=== PATIENT | female | born 1965 | race African-American/Black ===

== ENCOUNTER 2018-11-05 09:12 | Emergency (ER) | payer MEDICAID ==
[~2018-11-05] VITALS: Ht 162.6 cm; Wt 68.0 kg
[~2018-11-05 09:12] MED LIST: ASPI-1079; BENA5TAB6; MONT5TAB13; PRO-AIR INH
[2018-11-05] MEDS ORDERED: ALBUTEROL (0.083%) 2.5MG/3ML NEB HHN STA (16:41)
[2018-11-05] MEDS ORDERED: PREDNISONE 20MG TABLET PO STA (16:41)
[2018-11-05 17:17] LABS: EOSINOPHILS % 0.4 % (0.0-5.0); HEMATOCRIT. 43.4 % (36.0-48.0); HEMOGLOBIN. 14.4 g/dL (12.0-16.0); LYMPHOCYTES % 40.8 % (20.0-50.0); MEAN CORPUSCULAR HEMOGLOBIN 29.2 pg (28.0-32.0); MEAN CORPUSCULAR VOLUME 87.8 fL (81.0-99.0); MEAN PLATELET VOLUME 10.7 fl (7.4-10.4); MONOCYTES % 11.2 % (2.0-8.0); NEUTROPHILS % 46.6 % (40.0-76.0); PLATELET 179 x1000/uL (130-400); RED BLOOD CELL COUNT 4.94 mill/uL (4.2-5.4)
[2018-11-05 17:20] LABS: CHLORIDE 109 mEq/L (98-107)
[2018-11-05 18:37] VITALS: BP 154/94
== END 2018-11-05 18:42 | disposition home or self-care (01) ==
LOC: ER 09:43
DX: J45.901 Unspecified asthma with (acute) exacerbation (principal); R07.89 Other chest pain; I10 Essential (primary) hypertension; Z91.018 Allergy to other foods
CPT/HCPCS: 36415; 71045; 80053; 84484; 85025; 93005; 94640; 99284; J7512; J7611

== ENCOUNTER 2021-07-23 13:14 | Emergency (ER) | payer MEDICAID | END 2021-07-23 14:53 | disposition left against medical advice (07) | LOC: ER 13:14 | DX: R68.89 Other general symptoms and signs (principal); Z53.21 Procedure and treatment not carried out due to patient leaving prior to being seen by health care provider ==

== ENCOUNTER 2021-07-25 13:42 | Emergency (ER) | payer MEDICAID ==
[~2021-07-25] VITALS: Ht 162.6 cm; Wt 70.0 kg
[2021-07-25] MEDS ORDERED: ACETAMINOPHEN 325MG TABLET PO ONE (14:00)
[2021-07-25] MEDS ORDERED: TOPUD MT (14:31)
[2021-07-25 16:52] VITALS: BP 128/78
== END 2021-07-25 16:54 | disposition home or self-care (01) ==
LOC: ER 13:42
DX: S92.911A Unspecified fracture of right toe(s), initial encounter for closed fracture (principal); I10 Essential (primary) hypertension; J45.909 Unspecified asthma, uncomplicated; Z86.59 Personal history of other mental and behavioral disorders; Z91.018 Allergy to other foods; Z98.51 Tubal ligation status; Z98.890 Other specified postprocedural states; W22.8XXA Striking against or struck by other objects, initial encounter; Y93.89 Activity, other specified; Y92.89 Other specified places as the place of occurrence of the external cause; Y99.8 Other external cause status
CPT/HCPCS: 73630; 99283; Z7610

== ENCOUNTER 2021-09-07 06:13 | Emergency (ER) | payer MEDICAID ==
[~2021-09-07] VITALS: Ht 162.6 cm; Wt 71.0 kg
[~2021-09-07 06:13] MED LIST changes: +TOPUD MT
[2021-09-07] MEDS ORDERED: IBUP-2028 PO (08:08)
[2021-09-07 08:41] VITALS: BP 126/74
== END 2021-09-07 08:42 | disposition home or self-care (01) ==
LOC: ER 06:13
DX: S92.911A Unspecified fracture of right toe(s), initial encounter for closed fracture (principal); X58.XXXA Exposure to other specified factors, initial encounter; Y93.89 Activity, other specified; Y92.9 Unspecified place or not applicable; I10 Essential (primary) hypertension; G43.909 Migraine, unspecified, not intractable, without status migrainosus; Z79.82 Long term (current) use of aspirin; Z98.51 Tubal ligation status; Z91.018 Allergy to other foods
CPT/HCPCS: 73630; 99283; Z7610

== ENCOUNTER 2022-02-11 13:09 | Emergency (ER) | payer MEDICAID ==
[~2022-02-11] VITALS: Ht 162.6 cm; Wt 72.0 kg
[~2022-02-11 13:09] MED LIST changes: +BENA5TAB40; -BENA5TAB6; +IBUP-2028 PO
[2022-02-11 15:45] VITALS: BP 172/99
[2022-02-11] MEDS ORDERED: HYDROCODONE/ACETAMINOPHEN 5/325MG TABLET PO ONE (15:45)
[2022-02-11] MEDS ORDERED: IBUP-2029 MT (17:42)
[2022-02-11] MEDS ORDERED: HYDR-4001 MT (17:42)
== END 2022-02-11 17:57 | disposition home or self-care (01) ==
LOC: ER 14:28
DX: R51.9 Headache, unspecified (principal); R42 Dizziness and giddiness; J45.909 Unspecified asthma, uncomplicated; I10 Essential (primary) hypertension; I49.9 Cardiac arrhythmia, unspecified; Z79.899 Other long term (current) drug therapy
CPT/HCPCS: 73502; 73660; 99284

== ENCOUNTER 2022-07-08 22:55 | Emergency (ER) | payer MEDICAID ==
[~2022-07-08] VITALS: Ht 162.6 cm; Wt 71.6 kg
[~2022-07-08 22:55] MED LIST changes: +HYDR-4001 MT; +IBUP-2029 MT
[2022-07-08 23:34] VITALS: BP 152/90
== END 2022-07-09 01:48 | disposition home or self-care (01) ==
LOC: ER 22:55
DX: R00.2 Palpitations (principal); I10 Essential (primary) hypertension; J45.909 Unspecified asthma, uncomplicated; Z98.51 Tubal ligation status; Z79.82 Long term (current) use of aspirin; Z91.018 Allergy to other foods
CPT/HCPCS: 71045; 93005; 99283

== ENCOUNTER 2023-02-08 00:43 | Emergency (ER) | payer MEDICAID ==
[~2023-02-08] VITALS: Ht 160 cm; Wt 68.9 kg
[2023-02-08 01:46] LABS: BASOPHILS % 1.1 % (0.0-2.0); EOSINOPHILS % 0.9 % (0.0-5.0); HEMATOCRIT. 38.7 % (36.0-48.0); HEMOGLOBIN. 13.1 g/dL (12.0-16.0); LYMPHOCYTES % 33.3 % (20.0-50.0); MEAN CORPUSCULAR HEMOGLOBIN 28.9 pg (28.0-32.0); MEAN CORPUSCULAR VOLUME 85.3 fL (81.0-99.0); MEAN PLATELET VOLUME 10.8 fl (7.4-10.4); MONOCYTES % 11.7 % (2.0-8.0); PLATELET 201 x1000/uL (130-400); RED BLOOD CELL COUNT 4.54 mill/uL (4.2-5.4); RED CELL DISTRIBUTION WIDTH 12.9 % (11.6-14.6)
[2023-02-08 01:57] LABS: CHLORIDE 111 mEq/L (98-107)
[2023-02-08 01:58] LABS: INR 0.9; PARTIAL THROMBOPLASTIN TIME 25.6 sec (23.4-31.0); PROTHROMBIN TIME 10.1 sec (9.6-11.0)
[2023-02-08] MEDS ORDERED: MAG-55 MT (02:22)
[2023-02-08] MEDS ORDERED: N325 SL (02:22)
[2023-02-08] MEDS ORDERED: NITROGLYCERIN 0.4MG TABLET SL SL ONE (02:30)
[2023-02-08] MEDS ORDERED: MAGNESIUM/ALUMINUM HYDROXIDE/SIMETHICONE 30ML UDC PO ONE (02:30)
[2023-02-08] MEDS ORDERED: POLY119P2 MT (02:47)
[2023-02-08 02:54] VITALS: BP 150/90
[2023-02-08 03:21] LABS: CLARITY URINE CLEAR (CLEAR); COLOR URINE YELLOW (YELLOW); KETONES URINE NEGATIVE (NEGATIVE); LEUKOCYTE ESTERASE URINE NEGATIVE (NEGATIVE); NITRITE URINE NEGATIVE (NEGATIVE); OCCULT BLOOD URINE NEGATIVE (NEGATIVE); PH URINE 6.5 (4.5-8.0); PROTEIN URINE NEGATIVE (NEGATIVE); SPECIFIC GRAVITY URINE 1.014 (1.005-1.030); UROBILINOGEN URINE 0.2 E.U./dL (0.2-1.0)
== END 2023-02-08 03:00 | disposition home or self-care (01) ==
LOC: ER 00:59
DX: F41.9 Anxiety disorder, unspecified (principal); R10.13 Epigastric pain; I10 Essential (primary) hypertension; J45.909 Unspecified asthma, uncomplicated; Z98.51 Tubal ligation status; Z79.82 Long term (current) use of aspirin; Z91.018 Allergy to other foods; Z79.899 Other long term (current) drug therapy
CPT/HCPCS: 36415; 71045; 80053; 81003; 84484; 85025; 93005; 99285

== ENCOUNTER 2023-03-24 19:46 | Emergency (ER) | payer MEDICAID ==
[~2023-03-24] VITALS: Ht 162.6 cm; Wt 65.7 kg
[~2023-03-24 19:46] MED LIST changes: +MAG-55 MT; +N325 SL; +POLY119P2 MT
[2023-03-24 19:48] VITALS: BP 181/99
[2023-03-24] MEDS ORDERED: PREDNISONE 20MG TABLET PO STA (21:13)
[2023-03-24] MEDS ORDERED: IPRATROPIUM BROMIDE (0.02%) 0.5MG/2.5ML NEB HHN STA (21:13)
[2023-03-24] MEDS ORDERED: ALBUTEROL (0.083%) 2.5MG/3ML NEB HHN STA (21:13)
[2023-03-24] MEDS ORDERED: MAGNESIUM/ALUMINUM HYDROXIDE/SIMETHICONE 30ML UDC PO STA (21:13)
[2023-03-24] MEDS ORDERED: ONDANSETRON 4MG ODT PO STA (21:13)
[2023-03-24] MEDS ORDERED: FAMOTIDINE 20MG TABLET PO ONE (21:15)
[2023-03-24 21:31] LABS: CLARITY URINE CLEAR (CLEAR); COLOR URINE YELLOW (YELLOW); KETONES URINE NEGATIVE (NEGATIVE); LEUKOCYTE ESTERASE URINE NEGATIVE (NEGATIVE); NITRITE URINE NEGATIVE (NEGATIVE); OCCULT BLOOD URINE NEGATIVE (NEGATIVE); PROTEIN URINE NEGATIVE (NEGATIVE); SPECIFIC GRAVITY URINE 1.024 (1.005-1.030)
[2023-03-24 21:37] VITALS: PULSE 76; RESP 18; O2SAT 96
[2023-03-24 22:26] LABS: EOSINOPHILS % 0.8 % (0.0-5.0); HEMATOCRIT. 37.5 % (36.0-48.0); HEMOGLOBIN. 12.3 g/dL (12.0-16.0); LYMPHOCYTES % 36.6 % (20.0-50.0); MEAN CORPUSCULAR HEMOGLOBIN 27.9 pg (28.0-32.0); MEAN CORPUSCULAR VOLUME 84.8 fL (81.0-99.0); MEAN PLATELET VOLUME 10.8 fl (7.4-10.4); MONOCYTES % 9.9 % (2.0-8.0); NEUTROPHILS % 51.7 % (40.0-76.0); PLATELET 207 x1000/uL (130-400); RED BLOOD CELL COUNT 4.42 mill/uL (4.2-5.4); RED CELL DISTRIBUTION WIDTH 13.1 % (11.6-14.6)
[2023-03-24 22:35] LABS: CHLORIDE 112 mEq/L (98-107)
[2023-03-24 22:36] LABS: INR 0.9
[2023-03-25] MEDS ORDERED: ACET-2708 MT (00:38)
[2023-03-25] MEDS ORDERED: P20 MT (00:38)
[2023-03-25] MEDS ORDERED: MAG355OR21 MT (00:38)
[2023-03-25] MEDS ORDERED: FAMO-135 MT (00:38)
[2023-03-25] MEDS ORDERED: ALBU6.7H3 INH (00:38)
[2023-03-25 00:43] VITALS: PULSE 76; RESP 18; TEMP 99.1
== END 2023-03-25 00:46 | disposition home or self-care (01) ==
LOC: ER 20:28
DX: R10.13 Epigastric pain (principal); R06.02 Shortness of breath; J45.909 Unspecified asthma, uncomplicated; I10 Essential (primary) hypertension; I49.9 Cardiac arrhythmia, unspecified; M54.50 Low back pain, unspecified
CPT/HCPCS: 80053; 81003; 81025; 83690; 85025; 85610; 36415; 74176; 94640; 99284; Q0162; J7512; Z7610 ×3

== ENCOUNTER 2024-03-25 23:11 | Emergency (ER) | payer MEDICAID ==
[~2024-03-25] VITALS: Ht 162.6 cm; Wt 70.0 kg
[~2024-03-25 23:11] MED LIST changes: +ACET-2708 MT; +ALBU6.7H3 INH; +FAMO-135 MT; +MAG355OR21 MT; -MONT5TAB13; +MONT5TAB79; +P20 MT
[2024-03-25 23:21] VITALS: BP 145/88; PULSE 88; RESP 16; TEMP 98.3; O2SAT 100
[2024-03-25] MEDS ORDERED: ONDANSETRON HCL 4MG/2ML INJ IV ONE (23:45)
[2024-03-25] MEDS ORDERED: PANTOPRAZOLE SODIUM 40 MG/VIAL IV ONE (23:45)
[2024-03-26 00:01] LABS: CHLORIDE 110 mEq/L (98-107); POTASSIUM 3.2 mEq/L (3.5-5.1); SODIUM 142 mEq/L (136-145)
[2024-03-26 00:02] LABS: CALCIUM 9.2 mg/dL (8.7-10.4); CARBON DIOXIDE 25 mEq/L (21-32)
[2024-03-26 00:07] LABS: GLUCOSE 127 mg/dL (70-105); TROPONIN I HIGH SENSITIVITY 6 ng/L (3.0-34); UREA NITROGEN BLOOD 13 mg/dL (9-23)
[2024-03-26 00:09] LABS: ALANINE AMINOTRANSFERASE 15 IU/L (10-49); ALBUMIN 4.4 g/dL (3.2-4.8); ASPARTATE AMINOTRANSFERASE 16 IU/L (<34); BILIRUBIN TOTAL 0.2 mg/dL (0.1-1.0)
[2024-03-26 00:11] LABS: BILIRUBIN DIRECT < 0.1 mg/dL (<=3.0)
[2024-03-26 00:23] LABS: BASOPHILS % 0.6 % (0.0-2.0); EOSINOPHILS % 0.5 % (0.0-5.0); HEMATOCRIT. 34.8 % (36.0-48.0); HEMOGLOBIN. 11.3 g/dL (12.0-16.0); MEAN CORPUSCULAR HEMOGLOBIN 26.8 pg (28.0-32.0); MEAN CORPUSCULAR HGB CONC 32.4 g/dL (31.0-37.0); MEAN CORPUSCULAR VOLUME 82.7 fL (81.0-99.0); MEAN PLATELET VOLUME 10.3 fl (7.4-10.4); MONOCYTES % 10.3 % (2.0-8.0); NEUTROPHILS % 51.6 % (40.0-76.0); PLATELET 222 x1000/uL (130-400); RED BLOOD CELL COUNT 4.21 mill/uL (4.2-5.4); RED CELL DISTRIBUTION WIDTH 13.4 % (11.6-14.6); WHITE BLOOD COUNT 5.7 x1000/uL (4.5-11.0)
[2024-03-26 00:44] LABS: D-DIMER 0.32 mg/L FEU (<0.50); INR 0.9; PARTIAL THROMBOPLASTIN TIME 23.1 sec (23.4-31.0); PROTHROMBIN TIME 10.1 sec (9.6-11.0)
[2024-03-26] MEDS ORDERED: POTASSIUM CHLORIDE 20MEQ/PACKET PO ONE (01:15)
[2024-03-26] MEDS: SODIUM CHLORIDE 0.9% 500 ML IV ONE (02:00)
[2024-03-26] MEDS ORDERED: DICY-18 MT (02:35)
[2024-03-26] MEDS ORDERED: PROT40 MT (02:38)
[2024-03-26] MEDS: POTASSIUM CHLORIDE 20MEQ/PACKET PO NR (02:42)
[2024-03-26] MEDS: ONDANSETRON HCL 4MG/2ML INJ IV NR (02:42)
[2024-03-26] MEDS: PANTOPRAZOLE SODIUM 40 MG/VIAL IV NR (02:42)
== END 2024-03-26 04:09 | disposition home or self-care (01) ==
LOC: ER 23:26
DX: R07.89 Other chest pain (principal); R06.02 Shortness of breath; M79.604 Pain in right leg; R10.13 Epigastric pain; I49.9 Cardiac arrhythmia, unspecified; J45.909 Unspecified asthma, uncomplicated; I10 Essential (primary) hypertension; Z98.51 Tubal ligation status; Z79.899 Other long term (current) drug therapy
CPT/HCPCS: 99285; 93971; 71045; 80076; 80048; 83880; 83690; 85025; 85379; 85610; 85730; 84484; 36415; 93005; 96374; 96361; 96375; J2405; J2470; J7040

== ENCOUNTER 2024-07-05 09:43 | Emergency (ER) | payer MEDICAID ==
[~2024-07-05] VITALS: Ht 162.6 cm; Wt 70.3 kg
[~2024-07-05 09:43] MED LIST changes: +PROT40 MT
[2024-07-05 10:02] VITALS: O2SAT 100
[2024-07-05] MEDS: KETOROLAC 30MG/ML VIAL IM ONE (12:03)
[2024-07-05] MEDS: MAGNESIUM/ALUMINUM HYDROXIDE/SIMETHICONE 30ML UDC PO ONE (12:03)
[2024-07-05] MEDS: METOCLOPRAMIDE HCL 10MG/2ML VIAL IM ONE (12:03)
[2024-07-05] MEDS ORDERED: FAMO20TA8 MT (12:42)
[2024-07-05] MEDS ORDERED: IBUP-2029 MT (12:42)
[2024-07-05 13:06] VITALS: BP 158/92; PULSE 77; RESP 18; TEMP 36.78072; O2SAT 97
== END 2024-07-05 13:08 | disposition home or self-care (01) ==
LOC: ER 12:51
DX: R51.9 Headache, unspecified (principal); J45.909 Unspecified asthma, uncomplicated; I10 Essential (primary) hypertension; Z98.51 Tubal ligation status; Z82.49 Family history of ischemic heart disease and other diseases of the circulatory system; Z79.899 Other long term (current) drug therapy; Z79.1 Long term (current) use of non-steroidal anti-inflammatories (NSAID)
CPT/HCPCS: 99284; 71045; 96372; J1885; J2765